=== PATIENT | male | born 1975 | race Caucasian/White ===

== ENCOUNTER 2017-07-15 13:42 | Emergency (ER) | payer BC ==
[2017-07-15] MEDS ORDERED: LIDOCAINE 1% W/EPI MPF 10 ML SOL ONE (13:46)
[2017-07-15] MEDS ORDERED: TDAP VACCINE 0.5 ML SUS IM ONE ×2 (14:34→14:54)
[2017-07-15 15:28] VITALS: RESP 18; TEMP 98
[2017-07-15 15:38] VITALS: BP 125/67; PULSE 69; O2SAT 96
== END 2017-07-15 15:17 | disposition home or self-care (01) ==
LOC: ED 13:42
DX: S61.411A Laceration without foreign body of right hand, initial encounter (principal); W45.8XXA Other foreign body or object entering through skin, initial encounter
CPT/HCPCS: 12002; 90471; 90715; 99285; G0168; A6446